=== PATIENT | male | born 1955 | race Caucasian/White ===

== ENCOUNTER → 2016-10-07 | Outpatient (CLI) | payer OTHER | LOC: RAD 13:47 | DX: R05 Cough (principal); M85.80 Other specified disorders of bone density and structure, unspecified site; J43.9 Emphysema, unspecified; J44.9 Chronic obstructive pulmonary disease, unspecified | CPT/HCPCS: 71020 ==

== ENCOUNTER → 2021-12-15 | Outpatient (CLI) | payer OTHER ==
[~2021-12-15] MED LIST: ADVAIR 250-501 EACH INH; CLARITIN10 MG PO; IPRAT-ALBUT 0.5-3 ML INH
== END ==
LOC: KOH-I 09:59
DX: F17.210 Nicotine dependence, cigarettes, uncomplicated (principal); R91.8 Other nonspecific abnormal finding of lung field
CPT/HCPCS: 71271

== ENCOUNTER → 2022-02-16 | Outpatient (CLI) | payer OTHER | LOC: HEART 5 11:20 | DX: J44.9 Chronic obstructive pulmonary disease, unspecified (principal) | CPT/HCPCS: 94060; 94729 ==

== ENCOUNTER → 2022-03-04 | Day surgery (SDC) | payer MEDICARE ==
[~2022-03-04] MED LIST changes: +ANTIVERT25 M1 PO; +BREO ELLIPTA 21 EACH INH; +LIPITOR TAB 2020 MG PO
== END | disposition home or self-care (01) ==
LOC: OR 10:38
PROVIDERS: Internal Medicine Pulmonary Disease
PROC: 0BJ08ZZ Inspection of Tracheobronchial Tree, Via Natural or Artificial Opening Endoscopic (ICD-10-PCS; principal; 2022-03-04 13:30)
DX: J39.8 Other specified diseases of upper respiratory tract (principal); J44.9 Chronic obstructive pulmonary disease, unspecified; E78.5 Hyperlipidemia, unspecified; R63.4 Abnormal weight loss; Z79.899 Other long term (current) drug therapy
CPT/HCPCS: 87015; 87070; 87116; 87205; 87206; 87252; J0171; J2250; J2704